=== PATIENT | male | born 1960 | race American Indian/Alaskan Native ===

== ENCOUNTER 2017-01-11 17:22 | Inpatient (IN) | payer SELFPAY ==
--- NOTE | 2017-01-11 18:33 | Emergency Department Report ---
ED Chest Pain HPI - General Chief Complaint: Chest Pain Stated Complaint: ELEVATED GLUCOSE/CHEST PAIN Time Seen by Provider: 01/11/17 18:30 Source: patient, EMS Mode of arrival: Stretcher Limitations: No Limitations - History of Present Illness Initial Comments: [place] when he had an apparent near syncopal episode. He states that he was standing at the time and caught himself on the way down. He also complains of some vague dizziness but no vertigo. In addition he states he's had intermittent right-sided chest pain which occurs for just a few minutes every few days. He is not having it now. However he states he experienced it just prior to the episode. He states he's never passed out before. He denies any recent travel. He denies leg pain or swelling. He states he has some vague shortness of breath although his pulse oximetry is 100%. He has not been coughing. Patient states that he is diabetic but doesn't take insulin or pills. Apparently he is noncompliant with his medicine. He does not have a primary care physician at this time. MD Complaint: chest pain -: Gradual, minutes(s) Onset: during exertion Pain Location: right chest Pain Radiation: none Severity: moderate Quality: sharp Consistency: now resolved Improves With: nothing Worsens With: nothing re: dyspnea. denies: nausea, vomting, diaphoresis Other Symptoms: syncope (near syncope). denies: cough, fever Treatments Prior to Arrival: none - Related Data Allergies Allergy/AdvReac Type Severity Reaction Status Date / Time No Known Allergies Allergy Unverified 01/11/17 18:12 Heart Score - HEART Score History: Slightly suspicious EKG: Normal Age: 45-65 Risk factors: 1-2 risk factors Troponin: < normal limit HEART Score: 2 - Critical Actions Critical Actions: 0-3 pts:0.9-1.7%risk of adverse cardiac event.Candidate for discharge ED Review of Systems ROS: Stated complaint: ELEVATED GLUCOSE/CHEST PAIN Other details as noted in HPI Constitutional: denies: chills, fever Eyes: denies: eye pain, eye discharge, vision change ENT: denies: ear pain, throat pain Respiratory: shortness of breath. denies: cough, wheezing Cardiovascular: chest pain, syncope. denies: palpitations Endocrine: no symptoms reported Gastrointestinal: denies: abdominal pain, nausea, diarrhea Genitourinary: denies: urgency, dysuria Musculoskeletal: denies: back pain, joint swelling, arthralgia Skin: denies: rash, lesions Neurological: denies: headache, weakness, paresthesias Psychiatric: denies: anxiety, depression Hematological/Lymphatic: denies: easy bleeding, easy bruising ED Past Medical Hx - Past Medical History Previous Medical History?: Yes Hx Diabetes: Yes - Surgical History Past Surgical History?: No - Social History Smoking Status: Former Smoker Substance Use Type: None ED Physical Exam - General Limitations: No Limitations General appearance: alert, in no apparent distress - Head Head exam: Present: atraumatic, normocephalic - Eye Eye exam: Present: normal appearance, PERRL, EOMI. Absent: scleral icterus - ENT ENT exam: Present: mucous membranes moist - Neck Neck exam: Present: normal inspection - Respiratory Respiratory exam: Present: normal lung sounds bilaterally. Absent: respiratory distress - Cardiovascular Cardiovascular Exam: Present: regular rate, normal rhythm. Absent: systolic murmur, diastolic murmur, rubs, gallop - GI/Abdominal GI/Abdominal exam: Present: soft, normal bowel sounds. Absent: distended, tenderness, guarding, rebound, rigid - Rectal Rectal exam: Present: deferred - Extremities Exam Extremities exam: Present: normal inspection, normal capillary refill. Absent: tenderness, pedal edema, joint swelling, calf tenderness - Back Exam Back exam: Present: normal inspection - Neurological Exam Neurological exam: Present: alert, oriented X3, CN II-XII intact. Absent: motor sensory deficit - Psychiatric Psychiatric exam: Present: normal affect, normal mood - Skin Skin exam: Present: warm, dry, intact, normal color. Absent: rash ED Course Vital Signs 01/11/17 01/11/17 17:54 18:07 Temperature 97.8 F Pulse Rate 66 66 Respiratory 18 Rate Blood Pressure 130/84 Blood Pressure 130/84 [Right] O2 Sat by Pulse 100 Oximetry - Reevaluation(s) Reevaluation #1: Referred to Dr. reynaldo brewster for admission to the hospitalist service. Certain tests are still pending. Dr. Munoz is aware. Patient is hemodynamically stable. He is not suspected of ACS or pulmonary embolism at this time clinically. However as above tests are still pending. 01/11/17 19:23 01/11/17 19:24 CT the head was ordered as the patient complained of some persistent dizziness after a near syncopal episode. CIARA score - Ciara Score Age > 65: (0) No Aspirin use within the Past 7 Days: (0) No 3 or more CAD Risk Factors: (0) No 2 or more Angina events in past 24 hrs: (0) No Known CAD with more than 50% Stenosis: (0) No Elevated Cardiac Markers: (0) No ST Deviation Greater than 0.5mm: (0) No CIARA Score: 0 ED Medical Decision Making - Lab Data Result diagrams: 01/11/17 18:31 01/11/17 18:31 Laboratory Results - last 24 hr 01/11/17 01/11/17 01/11/17 18:26 18:31 18:31 WBC 6.3 RBC 4.55 Hgb 14.3 Hct 42.5 MCV 93 MCH 31 MCHC 34 RDW 12.6 L Plt Count 265 Lymph % (Auto) 24.7 Forrest % (Auto) 5.4 Eos % (Auto) 0.3 Baso % (Auto) 0.4 Lymph # 1.6 Forrest # 0.3 Eos # 0.0 Baso # 0.0 Seg Neutrophils % 69.2 Seg Neutrophils # 4.4 Sodium 134 L Potassium 4.2 Chloride 95.1 L Carbon Dioxide 27 Anion Gap 16 BUN 9 Creatinine 0.7 L Estimated GFR > 60 BUN/Creatinine Ratio 12.85 Glucose 287 H POC Glucose 264 H Calcium 8.5 Troponin T < 0.010 - EKG Data -: EKG Interpreted by Me EKG shows normal: sinus rhythm, axis, intervals, QRS complexes, ST-T waves Rate: normal - EKG Data Interpretation: no acute changes - Radiology Data interpreted by me: Chest x-ray no acute process Critical care attestation.: If time is entered above; I have spent that time in minutes in the direct care of this critically ill patient, excluding procedure time. ED Disposition Clinical Impression: Near syncope, Right-sided chest pain Hyperglycemia due to type 2 diabetes mellitus Qualifiers: Diabetes mellitus alf insulin use: unspecified alf insulin use status Qualified Code(s): E11.65 - Type 2 diabetes mellitus with hyperglycemia Disposition: OP ADMIT IP TO THIS HOSP Is pt being admited?: Yes Does the pt Need Aspirin: Yes Condition: Stable Instructions: Diabetes Mellitus Type 2 in Adults (ED), Chest Pain (ED) Time of Disposition: 19:26
[2017-01-11 18:39] LABS: Basophils % (Auto) 0.4 % (0.0-1.8); Eosinophils % (Auto) 0.3 % (0.0-4.3); Hematocrit 42.5 % (35.5-45.6); Hemoglobin 14.3 gm/dl (11.8-15.2); Mean Corpuscular HGB Conc 34 % (32-34); Mean Corpuscular Hemoglobin 31 pg (28-32); Mean Corpuscular Volume 93 fl (84-94); Platelet Count 265 K/mm3 (140-440); Red Blood Count 4.55 M/mm3 (3.65-5.03); Red Cell Distribution Width 12.6 % (13.2-15.2); White Blood Count 6.3 K/mm3 (4.5-11.0)
--- NOTE | 2017-01-11 19:02 | History and Physical Report ---
History of Present Illness Chief complaint: My chest hurts History of present illness: 56 YO Male with DM, Metabolic Syndrome presents to ED for evaluation of chest pain. Pt states that he was standing at work, and got lightheaded and passed out , but caught himself on the way down. Pt c/o right-sided chest pain which occurs for just a few minutes every few days. Pain is 6/10, substernal, nonradiating, not worsened with exertion, or relieved with rest. Pt denies fever , chills, Palpitations, NVD, Headache, Vertigo, BRBPR, productive cough, prolonged travel/immobility, individual/family history of DVT/PE, Hemoptysis,, unintentional weight loss, night sweats. Past History Past Medical History: diabetes, other (Metabolic Syndrome) Past Surgical History: No surgical history, Other (reviewed) Social history: single. denies: smoking, alcohol abuse, prescription drug abuse Family history: hypertension Medications and Allergies Allergies Allergy/AdvReac Type Severity Reaction Status Date / Time No Known Allergies Allergy Verified 01/11/17 21:07 Review of Systems All systems: negative Exam - Constitutional Vitals: Temp Pulse Resp BP Pulse Ox 97.8 F 66 18 130/84 100 01/11/17 17:54 01/11/17 18:07 01/11/17 17:54 01/11/17 17:54 01/11/17 17:54 General appearance: Present: no acute distress, well-nourished - EENT Eyes: Present: PERRL ENT: hearing intact, clear oral mucosa - Neck Neck: Present: supple, normal ROM - Respiratory Respiratory effort: normal Respiratory: bilateral: CTA - Cardiovascular Heart Sounds: Present: S1 & S2. Absent: rub, click - Extremities Extremities: pulses symmetrical, No edema Peripheral Pulses: within normal limits - Abdominal General gastrointestinal: Present: soft, non-tender, non-distended, normal bowel sounds Male genitourinary: Present: normal - Integumentary Integumentary: Present: clear, warm, dry - Musculoskeletal Musculoskeletal: gait normal, strength equal bilaterally - Psychiatric Psychiatric: appropriate mood/affect, intact judgment & insight - Neurologic Neurologic: CNII-XII intact, moves all extremities Results - Labs CBC & Chem 7: 01/11/17 18:31 01/11/17 18:31 Labs: Abnormal lab results 01/11/17 01/11/17 Range/Units 18:26 18:31 RDW 12.6 L (13.2-15.2) % POC Glucose 264 H (70-105) Assessment and Plan - Patient Problems (1) ACS (acute coronary syndrome) Current Visit: Yes Status: Acute Plan to address problem: Admit to telemetry, serial cardiac enzymes, ekg, d dimer, supportive care, (2) Unconscious state Current Visit: Yes Status: Acute Plan to address problem: CT head, telemetry monitoring, serial cardiac enzymes, ekg (3) Diabetes Current Visit: Yes Status: Acute Qualifiers: Diabetes mellitus type: D Diabetes mellitus complication status: D Diabetes mellitus complication detail: D Diabetic retinopathy severity: D Proliferative retinopathy type: P Diabetes mellitus macular edema: D Diabetes mellitus assisted insulin use: D Laterality: L Chronic kidney disease stage: C Plan to address problem: ADA diet, insulin, accu check (4) Metabolic syndrome Current Visit: Yes Status: Acute Plan to address problem: Pt counseled regarding balanced diet, increased physical activity (5) DVT prophylaxis Current Visit: Yes Status: Acute
[2017-01-11 19:09] LABS: Anion Gap 16 mmol/L; BUN/Creatinine Ratio 12.85; Blood Urea Nitrogen 9 mg/dL (9-20); Calcium 8.5 mg/dL (8.4-10.2); Carbon Dioxide 27 mmol/L (22-30); Chloride 95.1 mmol/L (98-107); Glucose 287 mg/dL (75-100); Potassium 4.2 mmol/L (3.6-5.0); Sodium 134 mmol/L (137-145)
[2017-01-11] MEDS ORDERED: BABY ASPIRIN PO ONE (19:27)
--- NOTE | 2017-01-11 19:27 | Admit Criteria Form ---
Admission Criteria Documentation: CHEST PAIN Clinical Indications for Admission to Inpatient Care (Place 'X' for any and all applicable criteria): Admission is indicated for chest pain and ANY ONE of the following(1)(2)(3)(4)(5 ): [ ]I. Angina with acute coronary syndrome (Also use Myocardial Infarction or Angina guideline) [ ]II. Hemodynamic instability [X ]III. Angina needing acute intervention as indicated by ALL of the following (11)(12): [X ]a) Unstable angina is present as indicated by angina that is ANY ONE of the following: [X ]i) New onset [ ]ii) Nocturnal [ ]iii) Prolonged at rest [ ]iv) Progressive [X ]b) Angina warrants acute intervention as indicated by ANY ONE of the following: [ ]i) Recurrent angina (e.g, not responding as previously to treatment) [ ]ii) Angina at rest or with low-level activities despite initial medical therapy [ ]iii) New or presumably new ST-segment depression on ECG [ ]iv) Signs or symptoms of heart failure (eg, dyspnea, pulmonary edema) [ ]v) New or worsening mitral regurgitation [ ]vi) Hemodynamic instability [ ]vii) Dangerous arrhythmia (eg, sustained ventricular tachycardia) [ ]viii) History of percutaneous coronary intervention within 6 months [ ]ix) History of coronary artery bypass graft surgery [ ]x) CIARA risk score of 2 or greater[A] [X ]xi) History of Diabetes(14) [ ]xii) High-risk cardiac ischemia findings on noninvasive testing (e.g, echocardiogram, treadmill testing, nuclear scan) [ ]xiii) Chronic renal insufficiency (ie, estimated GFR less than 60 mL/min/1.732m) [ ]xiv) Left ventricular ejection fraction less than 40% [ ]IV. Evidence of IN (eg, cardiac biomarkers positive, ST-segment elevation on ECG) also use Myocardial Infarction Criteria Form. [ ]V. Pulmonary edema [ ]. Respiratory distress [ ]VII. Chest pain indicative of serious diagnosis other than coronary artery disease (eg, aortic dissection) [ ]VIII. Contraindications and/or Inappropriate clinical situations for Observational Care in patients with Chest Pain, when ANY ONE of the following is required: [ ]a) Patient with risk factor for pulmonary embolism, acute coronary syndrome and myocardial infarction (18) [ ]b) Patient with Pulmonary embolism require an average LOS of 4.3 days, therefore emergency department observation management is inappropriate 18,23 [ ]c) Painful condition/s in the elderly, have the highest rate of recidivism after emergency department observation management (10.8%) 20,21,22 [ ]d) Elevated cardiac biomarker requires intensive and exhaustive care (19) [ X]IX. General contraindications and/or Inappropriate clinical situations for Observational Care in patients with Chest Pain, when ANY ONE of the following is required: [ X]a) Prediction of prolongation of LOS based on ANY ONE of the following may be considered as a contraindication for observational care 2, 3, 4, 5, 6, 7, 8, 9, 10, 11 [ ]i) Age > 65 yrs. [X ]ii) Patient arriving by ambulance [ ]iii) Patient with high acuity [ ]iv) Patient requiring vital sign monitoring [ ]v) Patient on IV medication [ ]b) Systolic blood pressures 180mmHg 3,12 [ ]c) Patient with altered mental status including delirium and other alteration of consciousness, (3) [ ]d) Patient whose discharge disposition will be to a penitentiary home or rehabilitation home should not be managed in Emergency Department Observation Unit. CMS rule requires 3 days hospital stay before such placement. 3,13 [ ]e) Patient with failure to thrive due to broad array of etiologies 3,16,17 [ ]f) Inability to ambulate 3,14 Extended stay beyond goal length of stay may be needed for (1)(28): [ ]a) Specific condition diagnosed after evaluation (eg, pulmonary embolism, aortic dissection) [ ]b) Unstable angina [ ]c) Continued suspicion of acute coronary syndrome with inability to complete needed cardiac evaluation (eg, patient clinically unable to undergo stress testing) [ ]d) Myocardial infarction (Contents from ANGINA and CHEST PAIN clinical indications for admission to inpatient care have been integrated in this form) The original [employer] content created by [employer] has been revised. The portions of the content which have been revised are identified through the use of italic text or in bold, and [facility] has neither reviewed nor approved the modified material. All other unmodified content is copyright [facility]. Please see references footnoted in the original [facility] edition 2016 Admission Criteria Met: Yes
--- NOTE | 2017-01-11 19:57 | Cat Scan Report ---
FINAL REPORT PROCEDURE: CT head without contrast. TECHNIQUE: Computerized tomography of the head was performed without contrast material. HISTORY: Dizziness, syncope. COMPARISON: No prior studies are available for comparison. FINDINGS: The ventricles are normal in size. There may be a tiny old lacunar infarct in the right basal ganglia. The padilla matter and white matter otherwise appear normal. There are no mass lesions. There is no intracranial hemorrhage. There are no signs of acute infarction. The calvarium appears intact. The mastoid air cells and visualized paranasal sinuses are well aerated. IMPRESSION: No evidence of acute disease.
[2017-01-11 20:01] LABS: INR 1.03 (0.87-1.13)
[2017-01-11 20:02] LABS: Partial Thromboplastin Time 26.6 Sec. (24.2-36.6)
[2017-01-11] MEDS ORDERED: MILK OF MAGNESIA PO PRN (21:01)
[2017-01-11] MEDS ORDERED: SODIUM CHLORIDE FLUSH SYRINGE 10 ML IV PRN (21:01)
[2017-01-11] MEDS ORDERED: TYLENOL PO PRN (21:01)
[2017-01-11] MEDS ORDERED: ZOFRAN IV PRN (21:01)
[2017-01-11] MEDS ORDERED: DULCOLAX PR PRN (21:01)
[2017-01-11] MEDS ORDERED: D50W (25GM) IV PRN (21:05)
[2017-01-11] MEDS ORDERED: BABY ASPIRIN ONE (21:29)
[2017-01-11 21:42] LABS: Anion Gap 19 mmol/L; BUN/Creatinine Ratio 12.85; Blood Urea Nitrogen 9 mg/dL (9-20); Calcium 8.8 mg/dL (8.4-10.2); Carbon Dioxide 25 mmol/L (22-30); Chloride 93.3 mmol/L (98-107); Glucose 310 mg/dL (75-100); Potassium 3.7 mmol/L (3.6-5.0); Sodium 134 mmol/L (137-145)
[2017-01-11] MEDS: NOVOLOG SUB-Q SCH (22:03)
[2017-01-11] MEDS ORDERED: NOVOLOG SUB-Q ONE (22:08)
--- NOTE | 2017-01-12 07:55 | XRay Report ---
AP CHEST: HISTORY: Hypertension Trace right pleural effusion or pleural thickening is identified. The lungs are clear otherwise. Normal heart and mediastinal structures. The bony structures are unremarkable. IMPRESSION: Trace right pleural effusion.
[2017-01-12] MEDS: NOVOLOG SUB-Q SCH ×4 (11:00→21:43)
--- NOTE | 2017-01-12 11:57 | Discharge Summary ---
Providers - Providers Date of Admission: 01/11/17 21:01 Date of discharge: 01/12/17 Attending physician: MITCHELL MONTIEL MD Primary care physician: PUMPER GAGER APPRENTICE Hospitalization Reason for admission: near-syncope Condition: Stable Hospital course: 56 YO Male with DM, Metabolic Syndrome presents to ED for evaluation of chest pain. Pt states that he was standing at work, and got lightheaded and passed out , but caught himself on the way down. Pt c/o right-sided chest pain which occurs for just a few minutes every few days. Pain is 6/10, substernal, nonradiating, not worsened with exertion, or relieved with rest. Pt denies fever , chills, Palpitations, NVD, Headache, Vertigo, BRBPR, productive cough, prolonged travel/immobility, individual/family history of DVT/PE, Hemoptysis,, unintentional weight loss, night sweats. Patient had a stress test that was negative. Echo showed the 70% EF. Patient is clinically improved, he reports that he has not been taking his medicines for a year due to insurance lapsed all this were renewed for the patient. 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 He is clinically stable at this point for discharge (1) Atypical chest pain- costochondritis (2) Near Syncope with possible underlying vertigo (3) Diabetes mellitus (4) Metabolic syndrome Disposition: - TO HOME OR SELFCARE Time spent for discharge: 35 mins Core Measure Documentation - Palliative Care Palliative Care/ Comfort Measures: Not Applicable - Core Measures Any of the following diagnoses?: none - VTE Discharge Requirements Deep Vein Thrombosis/Pulmonary Embolism Present on Admission: No Exam - Physical Exam Narrative exam: VITAL SIGNS: Reviewed. GENERAL: The patient appeared well nourished and normally developed. Vital signs as documented. HEAD: No signs of head trauma. EYES: Pupils are equal. Extraocular motions intact. No nystagmus EARS: Hearing grossly intact. MOUTH: Oropharynx is normal. NECK: No adenopathy, no JVD. CHEST: Chest with clear breath sounds bilaterally. No wheezes, rales, or rhonchi. CARDIAC: Regular rate and rhythm. S1 and S2, without murmurs, gallops, or rubs. VASCULAR: No Edema. Peripheral pulses normal and equal in all extremities. ABDOMEN: Soft, without detectable tenderness. No sign of distention. No rebound or guarding, and no masses palpated. Bowel Sounds normal. MUSCULOSKELETAL: Good range of motion of all major joints. Extremities without clubbing, cyanosis or edema. NEUROLOGIC EXAM: Alert and oriented x 3. No focal sensory or strength deficits. Speech normal. Follows commands. PSYCHIATRIC: Mood normal. SKIN: No rash or lesions. - Constitutional Vitals: Temp Pulse Resp BP Pulse Ox 97.9 F 73 18 128/84 99 01/12/17 08:25 01/12/17 08:25 01/12/17 08:25 01/12/17 08:25 01/12/17 08:25 Plan Activity: advance as tolerated, fall precautions Diet: diabetic Additional Instructions: must follow up with the doctors. Recommend following with opthalmologist and poiatrist in 3-5 weeks Follow up with: PRIMARY CAREMD [Primary Care Provider] - 7 Days MIYA WASHINGTON MD [Staff Physician] - 7 Days LISA ELLER MD [Staff Physician] - 7 Days Prescriptions: Insulin NPH/Regular [NovoLIN 70/30] 12 unit SQ BIDDIAB 30 Days Lisinopril [Zestril TAB] 5 mg PO QDAY #30 tablet Other Discharge Orders: Glucometer (Amb) Location: Determined By Patient Glucometer supplies[Amb] Location: Determined By Patient
[2017-01-12] MEDS ORDERED: ANTIVERT PO PRN (16:06)
--- NOTE | 2017-01-12 16:13 | Progress Note ---
Assessment and Plan Assessment and plan: 56 YO Male with DM, Metabolic Syndrome presents to ED for evaluation of chest pain. Pt states that he was standing at work, and got lightheaded and passed out , but caught himself on the way down. Pt c/o right-sided chest pain which occurs for just a few minutes every few days. Pain is 6/10, substernal, nonradiating, not worsened with exertion, or relieved with rest. Pt denies fever , chills, Palpitations, NVD, Headache, Vertigo, BRBPR, productive cough, prolonged travel/immobility, individual/family history of DVT/PE, Hemoptysis,, unintentional weight loss, night sweats. (1) Atypical chest pain * Continue telemetry, stress test PENDING, serial cardiac enzymes, ekg, d dimer , supportive care, (2) Near Syncope with possible underlying vertigo * CT head negative, * Check echo * Meclizine-PRN (3) Diabetes * ADA diet, insulin, accu check * Non compliant secondary to insurance- counselling provided. psychiatric social worker consult (4) Metabolic syndrome Pt counseled regarding balanced diet, increased physical activity (5) DVT prophylaxis scd Plan of care discussed in detail with the patient, History Interval history: Patient seen and examined this morning in no acute distress still reports some dizziness but reports improvement. States that he has been having chest discomfort substernal bilateral chest area for the past year pain is reproducible with no exertional component. No other adverse event reported to me. Denies any shortness of breath. Unfortunately has not been taking his medication for a year due to insurance lapse. Hospitalist Physical - Physical exam Narrative exam: VITAL SIGNS: Reviewed. GENERAL: The patient appeared well nourished and normally developed. Vital signs as documented. HEAD: No signs of head trauma. EYES: Pupils are equal. Extraocular motions intact. No nystagmus EARS: Hearing grossly intact. MOUTH: Oropharynx is normal. NECK: No adenopathy, no JVD. CHEST: Chest with clear breath sounds bilaterally. No wheezes, rales, or rhonchi. CARDIAC: Regular rate and rhythm. S1 and S2, without murmurs, gallops, or rubs. VASCULAR: No Edema. Peripheral pulses normal and equal in all extremities. ABDOMEN: Soft, without detectable tenderness. No sign of distention. No rebound or guarding, and no masses palpated. Bowel Sounds normal. MUSCULOSKELETAL: Good range of motion of all major joints. Extremities without clubbing, cyanosis or edema. NEUROLOGIC EXAM: Alert and oriented x 3. No focal sensory or strength deficits. Speech normal. Follows commands. PSYCHIATRIC: Mood normal. SKIN: No rash or lesions. - Constitutional Vitals: Temp Pulse Resp BP Pulse Ox 97.9 F 73 18 128/84 99 01/12/17 08:25 01/12/17 08:25 01/12/17 08:25 01/12/17 08:25 01/12/17 08:25 General appearance: Present: no acute distress, well-nourished Results - Labs CBC & Chem 7: 01/11/17 18:31 01/11/17 21:09 Labs: Laboratory Last Values WBC 6.3 K/mm3 (4.5-11.0) 01/11/17 18:31 RBC 4.55 M/mm3 (3.65-5.03) 01/11/17 18:31 Hgb 14.3 gm/dl (11.8-15.2) 01/11/17 18:31 Hct 42.5 % (35.5-45.6) 01/11/17 18:31 MCV 93 fl (84-94) 01/11/17 18:31 MCH 31 pg (28-32) 01/11/17 18:31 MCHC 34 % (32-34) 01/11/17 18:31 RDW 12.6 % (13.2-15.2) L 01/11/17 18:31 Plt Count 265 K/mm3 (140-440) 01/11/17 18:31 Lymph % (Auto) 24.7 % (13.4-35.0) 01/11/17 18:31 Patrick % (Auto) 5.4 % (0.0-7.3) 01/11/17 18:31 Eos % (Auto) 0.3 % (0.0-4.3) 01/11/17 18:31 Baso % (Auto) 0.4 % (0.0-1.8) 01/11/17 18:31 Lymph # 1.6 K/mm3 (1.2-5.4) 01/11/17 18:31 Patrick # 0.3 K/mm3 (0.0-0.8) 01/11/17 18:31 Eos # 0.0 K/mm3 (0.0-0.4) 01/11/17 18:31 Baso # 0.0 K/mm3 (0.0-0.1) 01/11/17 18:31 Seg Neutrophils % 69.2 % (40.0-70.0) 01/11/17 18:31 Seg Neutrophils # 4.4 K/mm3 (1.8-7.7) 01/11/17 18:31 PT 14.0 Sec. (12.2-14.9) 01/11/17 19:22 INR 1.03 (0.87-1.13) 01/11/17 19:22 APTT 26.6 Sec. (24.2-36.6) 01/11/17 19:22 D-Dimer 152.15 ng/mlDDU (0-234) 01/11/17 19:22 Sodium 134 mmol/L (137-145) L 01/11/17 21:09 Potassium 3.7 mmol/L (3.6-5.0) 01/11/17 21:09 Chloride 93.3 mmol/L (98-107) L 01/11/17 21:09 Carbon Dioxide 25 mmol/L (22-30) 01/11/17 21:09 Anion Gap 19 mmol/L 01/11/17 21:09 BUN 9 mg/dL (9-20) 01/11/17 21:09 Creatinine 0.7 mg/dL (0.8-1.5) L 01/11/17 21:09 Estimated GFR > 60 ml/min 01/11/17 21:09 BUN/Creatinine Ratio 12.85 % 01/11/17 21:09 Glucose 310 mg/dL (75-100) H 01/11/17 21:09 POC Glucose 203 (70-105) H 01/12/17 12:21 Calcium 8.8 mg/dL (8.4-10.2) 01/11/17 21:09 Troponin T < 0.010 ng/mL (0.00-0.029) 01/12/17 02:43 NT-Pro-B Natriuret Pep < 5 pg/mL (0-900) 01/11/17 21:09 - Imaging and Cardiology Chest x-ray: image reviewed (right pleural effusion and minimal)
[2017-01-13] MEDS: NOVOLOG SUB-Q SCH ×3 (08:00→19:25)
[2017-01-13] MEDS ORDERED: LEXISCAN IV ONE (09:59)
[2017-01-13 11:27] VITALS: BP 142/89
--- NOTE | 2017-01-13 11:44 | Event Note ---
Date: 01/13/17 Stress MPI (lexiscan): 1. Normal study without evidence of significant ischemia or prior infarct 2. Normal lv fxn (70%) w/o evidence of TID
== END 2017-01-13 18:00 | disposition home or self-care (01) | DRG 206 ==
LOC: ED 17:22 → 4A 21:01
PROVIDERS: ADMIT Internal Medicine; ATTEND Internal Medicine
PROC: 4A02XM4 Measurement of Cardiac Total Activity, External Approach (ICD-10-PCS; principal; 2017-01-12)
DX: M94.0 Chondrocostal junction syndrome [Tietze] (principal); I24.9 Acute ischemic heart disease, unspecified; R07.89 Other chest pain; E11.9 Type 2 diabetes mellitus without complications; R42 Dizziness and giddiness; E88.81 Metabolic syndrome and other insulin resistance; Z91.14 Patient's other noncompliance with medication regimen; Z87.891 Personal history of nicotine dependence; Z82.49 Family history of ischemic heart disease and other diseases of the circulatory system
CPT/HCPCS: 36415; 70450; 71010; 78452; 80048; 82962; 83880; 84484; 85025; 85379; 85610; 85730; 93005; 93010; 93017; 93306; 99285; A9270-GY; A9502; J1815; J2785

== ENCOUNTER 2020-03-28 12:18 | Emergency (ER) | payer SELFPAY ==
[2020-03-28] MEDS ORDERED: ASPIRIN 325 MG TAB PO ONE ×2 (12:45→13:58)
[2020-03-28 13:19] LABS: Hematocrit 43.5 % (35.5-45.6); Hemoglobin 15.5 gm/dl (11.8-15.2); Mean Corpuscular HGB Conc 36 % (32-34); Mean Corpuscular Volume 94 fl (84-94); Platelet Count 269 K/mm3 (140-440); Red Blood Count 4.61 M/mm3 (3.65-5.03); Red Cell Distribution Width 12.9 % (13.2-15.2)
[2020-03-28 13:40] LABS: BUN/Creatinine Ratio 13; Blood Urea Nitrogen 10 mg/dL (9-20); Calcium 9.5 mg/dL (8.4-10.2); Hemolysis Index 12
--- NOTE | 2020-03-28 13:56 | Emergency Department Report ---
ED Chest Pain HPI - General Chief Complaint: Chest Pain Stated Complaint: CP Source: patient Mode of arrival: Ambulatory Limitations: No Limitations - History of Present Illness Initial Comments: This is a 59-year-old diabetic man who is noncompliant with his medication. He states he went to [facility] and let his insurance lapse. He has not had active chest pain for over a week. He does have intermittent tightness. Sometimes he feels like his chest is stiff in the morning. He does not describe pleuritic pain nor exertional chest pain. His chest pain is not associated with nausea vomiting breathing difficulty or sweating. He is not dyspneic. The reason why he came to the emergency department today is because he saw a family physician yesterday to renew his diabetic medication. He did not get that filled yet. [facility] requesting EKG was not completely normal. He decided to come to the emergency department this morning although he did not have any chest pain overnight. Patient was seen at this facility back in 2017. He did have a myocardial perfusion scan at that time. He was not diagnosed with coronary artery disease or cardiac related chest pain. 2017: Hospitalization Reason for admission: near-syncope Condition: Stable Hospital course: 56 YO Male with DM, Metabolic Syndrome presents to ED for evaluation of chest pain. Pt states that he was standing at work, and got lightheaded and passed out, but caught himself on the way down. Pt c/o right-sided chest pain which occurs for just a few minutes every few days. Pain is 6/10, substernal, nonradiating, not worsened with exertion, or relieved with rest. Pt denies fever, chills, Palpitations, NVD, Headache, Vertigo, BRBPR, productive cough, prolonged travel/immobility, individual/family history of DVT/PE, Hemoptysis,, unintentional weight loss, night sweats. Patient had a stress test that was negative. Echo showed the 70% EF. Patient is clinically improved, he reports that he has not been taking his medicines for a year due to insurance lapsed all this were renewed for the patient. I did strongly advise follow-up with primary care physician and also follow up with science writer and senior mechanical estimator due to the diabetes. He is clinically stable at this point for discharge (1) Atypical chest pain- costochondritis (2) Near Syncope with possible underlying vertigo (3) Diabetes mellitus (4) Metabolic syndrome MD Complaint: chest pain -: month(s), year(s) Onset: during rest Pain Location: substernal Pain Radiation: none Severity: mild Quality: tightness Consistency: intermittent, now resolved Improves With: nothing Worsens With: nothing Context: other (Above negative) re: denies: nausea, vomting, diaphoresis, dyspnea, sense of impending doom Other Symptoms: denies: cough, fever, syncope Treatments Prior to Arrival: none - Related Data Previous Rx's Medication Instructions Recorded Last Taken Type Insulin NPH/Regular [NovoLIN 70/30] 12 unit SQ BIDDIAB 30 Days ml 01/12/17 Unknown Rx lisinopriL [Zestril TAB] 5 mg PO QDAY #30 tablet 01/12/17 Unknown Rx Allergies Allergy/AdvReac Type Severity Reaction Status Date / Time No Known Allergies Allergy Verified 01/11/17 21:07 Heart Score - HEART Score History: Slightly suspicious EKG: Non-specific Age: 45-65 Risk factors: 1-2 risk factors Troponin: < normal limit HEART Score: 3 - Critical Actions Critical Actions: 0-3 pts:0.9-1.7%risk of adverse cardiac event.Candidate for discharge ED Review of Systems ROS: Stated complaint: CP Other details as noted in HPI Constitutional: denies: chills, fever Eyes: denies: eye pain, eye discharge, vision change ENT: denies: ear pain, throat pain Respiratory: denies: cough, shortness of breath, wheezing Cardiovascular: as per HPI, chest pain. denies: palpitations Endocrine: increased hunger, increased thirst, increased urine Gastrointestinal: denies: abdominal pain, nausea, diarrhea Genitourinary: denies: urgency, dysuria Musculoskeletal: denies: back pain, joint swelling, arthralgia Skin: denies: rash, lesions Neurological: denies: headache, weakness, paresthesias Psychiatric: denies: anxiety, depression Hematological/Lymphatic: denies: easy bleeding, easy bruising ED Past Medical Hx - Past Medical History Previous Medical History?: Yes Hx Congestive Heart Failure: No Hx Diabetes: Yes Hx Asthma: No Hx COPD: No - Surgical History Past Surgical History?: No - Social History Smoking Status: Never Smoker Substance Use Type: None - Medications Home Medications: Home Medications Medication Instructions Recorded Confirmed Last Taken Type Insulin NPH/Regular [NovoLIN 70/30] 12 unit SQ BIDDIAB 30 Days ml 01/12/17 Unknown Rx lisinopriL [Zestril TAB] 5 mg PO QDAY #30 tablet 01/12/17 Unknown Rx ED Physical Exam - General Limitations: No Limitations General appearance: alert, in no apparent distress - Head Head exam: Present: atraumatic, normocephalic - Eye Eye exam: Present: normal appearance. Absent: scleral icterus - ENT ENT exam: Present: mucous membranes moist - Neck Neck exam: Present: normal inspection - Respiratory Respiratory exam: Present: normal lung sounds bilaterally. Absent: respiratory distress - Cardiovascular Cardiovascular Exam: Present: regular rate, normal rhythm. Absent: systolic murmur, diastolic murmur, rubs, gallop - GI/Abdominal GI/Abdominal exam: Present: soft, normal bowel sounds. Absent: distended, tenderness, guarding, rebound, rigid - Rectal Rectal exam: Present: deferred - Extremities Exam Extremities exam: Present: normal inspection - Back Exam Back exam: Present: normal inspection - Neurological Exam Neurological exam: Present: alert, oriented X3, CN II-XII intact. Absent: motor sensory deficit - Psychiatric Psychiatric exam: Present: normal affect, normal mood - Skin Skin exam: Present: warm, dry, intact, normal color. Absent: rash ED Course Vital Signs 03/28/20 03/28/20 12:39 14:40 Temperature 98.1 F Pulse Rate 93 H Respiratory 18 16 Rate Blood Pressure 147/91 O2 Sat by Pulse 99 100 Oximetry - Reevaluation(s) Reevaluation #1: Patient without any recurrent chest pain. Obviously does have risk factors for coronary artery disease. However I do not think he would benefit from admission to the hospital at this juncture. He has had no active or recent chest pain. His pain is atypical. He has had a previous negative stress test. He is appropriate for outpatient evaluation by a prospecting driller and stable for discharge. 03/28/20 14:32 Reevaluation #2: Patient remains asymptomatic. He states he has his prescription for his diabetic medicines. He is referred for outpatient follow-up and further evaluation. 03/28/20 15:27 ALFRED score - Alfred Score Age > 65: (0) No Aspirin use within the Past 7 Days: (0) No 3 or more CAD Risk Factors: (0) No 2 or more Angina events in past 24 hrs: (0) No Known CAD with more than 50% Stenosis: (0) No Elevated Cardiac Markers: (0) No ST Deviation Greater than 0.5mm: (0) No ALFRED Score: 0 ED Medical Decision Making - Lab Data Result diagrams: 03/28/20 12:56 03/28/20 12:56 Laboratory Results - last 24 hr 03/28/20 03/28/20 12:56 12:56 WBC 5.4 RBC 4.61 Hgb 15.5 H Hct 43.5 MCV 94 MCH 34 H MCHC 36 H RDW 12.9 L Plt Count 269 Sodium 134 L Potassium 4.4 Chloride 95.0 L Carbon Dioxide 23 Anion Gap 20 BUN 10 Creatinine 0.8 Estimated GFR > 60 BUN/Creatinine Ratio 13 Glucose 544 H* Calcium 9.5 Troponin T < 0.010 Laboratory Results - last 24 hr 03/28/20 03/28/20 03/28/20 12:56 12:56 14:32 WBC 5.4 RBC 4.61 Hgb 15.5 H Hct 43.5 MCV 94 MCH 34 H MCHC 36 H RDW 12.9 L Plt Count 269 Add Manual Diff Complete Total Counted 100 Seg Neuts % (Manual) 46.0 Band Neutrophils % 0 Lymphocytes % (Manual) 49.0 H Reactive Lymphs % (Man) 0 Monocytes % (Manual) 4.0 Eosinophils % (Manual) 0 Basophils % (Manual) 0 Metamyelocytes % 1.0 Myelocytes % 0 Promyelocytes % 0 Blast Cells % 0 Nucleated RBC % Not Reportable Seg Neutrophils # Man 2.5 Band Neutrophils # 0.0 Lymphocytes # (Manual) 2.6 Abs React Lymphs (Man) 0.0 Monocytes # (Manual) 0.2 Eosinophils # (Manual) 0.0 Basophils # (Manual) 0.0 Metamyelocytes # 0.1 Myelocytes # 0.0 Promyelocytes # 0.0 Blast Cells # 0.0 WBC Morphology Not Reportable Hypersegmented Neuts Not Reportable Hyposegmented Neuts Not Reportable Hypogranular Neuts Not Reportable Smudge Cells Not Reportable Toxic Granulation Not Reportable Toxic Vacuolation Not Reportable Dohle Bodies Not Reportable Pelger-Huet Anomaly Not Reportable Serenity Rods Not Reportable Platelet Estimate Consistent w auto Clumped Platelets Not Reportable Plt Clumps, EDTA Not Reportable Large Platelets Not Reportable Giant Platelets Not Reportable Platelet Satelliting Not Reportable Plt Morphology Comment Not Reportable RBC Morphology Normal Dimorphic RBCs Not Reportable Polychromasia Not Reportable Hypochromasia Not Reportable Poikilocytosis Not Reportable Anisocytosis Not Reportable Microcytosis Not Reportable Macrocytosis Not Reportable Spherocytes Not Reportable Pappenheimer Bodies Not Reportable Sickle Cells Not Reportable Target Cells Not Reportable Tear Drop Cells Not Reportable Ovalocytes Not Reportable Helmet Cells Not Reportable Brock-[place] Bodies Not Reportable [place] Rings Not Reportable [place] Cells Not Reportable Bite Cells Not Reportable Crenated Cell Not Reportable Elliptocytes Not Reportable Acanthocytes (Spur) Not Reportable Rouleaux Not Reportable Hemoglobin C Crystals Not Reportable Schistocytes Not Reportable Malaria parasites Not Reportable Cong Bodies Not Reportable Hem Pathologist Commnt No Sodium 134 L Potassium 4.4 Chloride 95.0 L Carbon Dioxide 23 Anion Gap 20 BUN 10 Creatinine 0.8 Estimated GFR > 60 BUN/Creatinine Ratio 13 Glucose 544 H* POC Glucose Calcium 9.5 Troponin T < 0.010 < 0.010 03/28/20 03/28/20 14:59 15:01 WBC RBC Hgb Hct MCV MCH MCHC RDW Plt Count Add Manual Diff Total Counted Seg Neuts % (Manual) Band Neutrophils % Lymphocytes % (Manual) Reactive Lymphs % (Man) Monocytes % (Manual) Eosinophils % (Manual) Basophils % (Manual) Metamyelocytes % Myelocytes % Promyelocytes % Blast Cells % Nucleated RBC % Seg Neutrophils # Man Band Neutrophils # Lymphocytes # (Manual) Abs React Lymphs (Man) Monocytes # (Manual) Eosinophils # (Manual) Basophils # (Manual) Metamyelocytes # Myelocytes # Promyelocytes # Blast Cells # WBC Morphology Hypersegmented Neuts Hyposegmented Neuts Hypogranular Neuts Smudge Cells Toxic Granulation Toxic Vacuolation Dohle Bodies Pelger-Huet Anomaly Serenity Rods Platelet Estimate Clumped Platelets Plt Clumps, EDTA Large Platelets Giant Platelets Platelet Satelliting Plt Morphology Comment RBC Morphology Dimorphic RBCs Polychromasia Hypochromasia Poikilocytosis Anisocytosis Microcytosis Macrocytosis Spherocytes Pappenheimer Bodies Sickle Cells Target Cells Tear Drop Cells Ovalocytes Helmet Cells Brock-[place] Bodies [place] Rings [place] Cells Bite Cells Crenated Cell Elliptocytes Acanthocytes (Spur) Rouleaux Hemoglobin C Crystals Schistocytes Malaria parasites Cong Bodies Hem Pathologist Commnt Sodium Potassium Chloride Carbon Dioxide Anion Gap BUN Creatinine Estimated GFR BUN/Creatinine Ratio Glucose POC Glucose 148 H 363 H Calcium Troponin T - EKG Data -: EKG Interpreted by Me EKG shows normal: sinus rhythm, axis, intervals, QRS complexes, ST-T waves Rate: normal - EKG Data Interpretation: no acute changes, LVH, other (Intraventricular conduction delay possibly related to LVH) Critical care attestation.: If time is entered above; I have spent that time in minutes in the direct care of this critically ill patient, excluding procedure time. ED Disposition Clinical Impression: Medical non-compliance, Atypical chest pain Hyperglycemia due to type 2 diabetes mellitus Qualifiers: Diabetes mellitus halfway insulin use: with liberal arts teacher use Qualified Code(s): E11.65 - Type 2 diabetes mellitus with hyperglycemia; Z79.4 - senior care (current) use of insulin Disposition: DC-01 TO HOME OR SELFCARE Is pt being admited?: No Does the pt Need Aspirin: No Condition: Stable Instructions: Diabetes Mellitus Type 2 in Adults (ED), Chest Pain (ED) Additional Instructions: Recommend daily aspirin. Follow-up with your primary care provider and see prospecting driller for further evaluation. Return to the emergency department any recurrent chest pain as needed. Referrals: ADRIANA FRANK MD [Staff Physician] - 24 Hours Time of Disposition: 15:29
[2020-03-28] MEDS ORDERED: SODIUM CHLORIDE 0.9% 1000 ML 1,000 ML IV ONE (13:58)
[2020-03-28] MEDS ORDERED: INSULIN REGULAR, HUMAN 100 UNIT/ML 3ML VIAL IV ONE (13:58)
--- NOTE | 2020-03-28 14:13 | XRay Report ---
CHEST 1 VIEW 03/28/2020 1:10 PM INDICATION / CLINICAL INFORMATION: Chest Pain. COMPARISON: None available. FINDINGS: SUPPORT DEVICES: None. HEART / MEDIASTINUM: No significant abnormality. LUNGS / PLEURA: No significant pulmonary or pleural abnormality. No pneumothorax. ADDITIONAL FINDINGS: No significant additional findings. IMPRESSION: 1. No acute findings. Signer Name: Bigg Ya MD Signed: 03/28/2020 2:08 PM Workstation Name: [id number]
[2020-03-28] MEDS ORDERED: INSULIN REGULAR, HUMAN 100 UNITS/1 ML ONE (14:30)
[2020-03-28 14:45] LABS: Basophils % (Manual) 0 % (0.0-1.8); Eosinophils % (Manual) 0 % (0.0-4.3); Platelet Estimate Consistent w Auto; RBC Morphology Normal; Total Cells Counted 100
[2020-03-28 16:05] VITALS: BP 133/90
== END 2020-03-28 16:00 | disposition home or self-care (01) ==
LOC: ED 12:18
DX: E11.65 Type 2 diabetes mellitus with hyperglycemia (principal); R07.89 Other chest pain; Z91.14 Patient's other noncompliance with medication regimen; Z79.899 Other long term (current) drug therapy
CPT/HCPCS: 36415; 71045; 80048; 82962; 84484; 85007; 85025; 93005; 96361; 96374; 99284; J7030; J1815

== ENCOUNTER 2020-04-12 17:10 | Observation (INO) | payer OTHER ==
[2020-04-12] MEDS ORDERED: ASPIRIN 325 MG TAB PO ONE (17:49)
--- NOTE | 2020-04-12 18:30 | XRay Report ---
Chest single view INDICATION: Dyspnea IMPRESSION: Persistent small right pleural effusion when compared to 03/28/2020. Otherwise, no change. Signer Name: Omid Fitzpatrick MD Signed: 04/12/2020 6:26 PM Workstation Name: [id number]
[2020-04-12 18:41] LABS: BUN/Creatinine Ratio 7; Blood Urea Nitrogen 8 mg/dL (9-20); Calcium 9.2 mg/dL (8.4-10.2); Hemolysis Index 33
[2020-04-12 18:49] LABS: Hematocrit 41.7 % (35.5-45.6); Hemoglobin 14.3 gm/dl (11.8-15.2); Mean Corpuscular HGB Conc 34 % (32-34); Mean Corpuscular Volume 94 fl (84-94); Platelet Count 274 K/mm3 (140-440); Red Blood Count 4.44 M/mm3 (3.65-5.03)
[2020-04-12 22:22] LABS: Basophils % (Manual) 0 % (0.0-1.8); Eosinophils % (Manual) 0 % (0.0-4.3); Total Cells Counted 100
[2020-04-12 22:23] LABS: Anisocytosis 1+; Platelet Estimate Consistent w Auto
--- NOTE | 2020-04-13 03:36 | Emergency Department Report ---
ED Chest Pain HPI - General Chief Complaint: Chest Pain Stated Complaint: CHEST PAIN Time Seen by Provider: 04/13/20 03:20 Source: patient, old records reviewed Mode of arrival: Ambulatory Limitations: No Limitations - History of Present Illness Initial Comments: 59-year-old male with a past medical history of diabetes and elevated cholesterol presents to the hospital complaining of intermittent chest tightness x6 months. Pain comes with rest and exertion. He denies associated shortness of breath, nausea, vomiting, or diaphoresis. Patient does states he is exhibiting fatigue with activity. Patient was seen here in the ER March 28 and subsequently discharged. Patient had a visit with a detective Dr. De La Torre with [facility] on April 12. As per her history patient had chest tightness on and off for a few weeks worse for the last 2 days. In the office patient had an EKG with probable recent anterior wall WI and inferior ST depressions. EKG and [facility] note included in his medical record on chart. Patient was sent to the ER for further evaluation. As per medical record greater than a stress test here in 2016 and was diagnosed with costochondritis Patient's home meds include aspirin 81 mg delayed release 1 tablet daily atrovastatin 10 mg p.o. daily Glipizide 10 mg daily Humulin N NPH - Related Data Previous Rx's Medication Instructions Recorded Last Taken Type Insulin NPH/Regular [NovoLIN 70/30] 12 unit SQ BIDDIAB 30 Days ml 01/12/17 Unknown Rx lisinopriL [Zestril TAB] 5 mg PO QDAY #30 tablet 01/12/17 Unknown Rx Allergies Allergy/AdvReac Type Severity Reaction Status Date / Time No Known Allergies Allergy Verified 01/11/17 21:07 Heart Score - HEART Score History: Slightly suspicious EKG: Non-specific Age: 45-65 Risk factors: > 3 risk factors or hx of atherosclerotic disease Troponin: < normal limit HEART Score: 4 ED Review of Systems ROS: Stated complaint: CHEST PAIN Other details as noted in HPI Comment: All other systems reviewed and negative ED Past Medical Hx - Past Medical History Previous Medical History?: Yes Hx Congestive Heart Failure: No Hx Diabetes: Yes Hx Asthma: No Hx COPD: No - Surgical History Past Surgical History?: No - Family History Family history: CAD/[place] - Social History Smoking Status: Former Smoker Substance Use Type: None - Medications Home Medications: Home Medications Medication Instructions Recorded Confirmed Last Taken Type Insulin NPH/Regular [NovoLIN 70/30] 12 unit SQ BIDDIAB 30 Days ml 01/12/17 Unknown Rx lisinopriL [Zestril TAB] 5 mg PO QDAY #30 tablet 01/12/17 Unknown Rx ED Physical Exam - General Limitations: No Limitations - Other Other exam information: General: No acute distress Head: Atraumatic Eyes: normal appearance ENT: Moist mucous membranes Neck: Normal appearance, no midline tenderness Chest: Clear to auscultation bilaterally, mild anterior chest wall tender CV: Regular rate and rhythm Abdomen: Soft, normal bowel sounds, nontender, nondistended, no rebound or guarding Back: Normal inspection Extremity: Normal inspection, full range of motion, no calf tenderness or leg edema Neuro: Alert O x 3, no facial asymmetry, speech clear, no gross motor sensory deficit Psych: Appropriate behavior Skin: No rash ED Course Vital Signs 04/12/20 04/13/20 17:51 03:39 Temperature 98.3 F Pulse Rate 84 61 Respiratory 20 16 Rate Blood Pressure 132/80 Blood Pressure 149/90 [Right] O2 Sat by Pulse 98 97 Oximetry - Consultations Consultation #1: 04/13/20 03:43 Case discussed with on-call detective for [place] heart doctor ANY DIETRICH. Patient will be admitted for further cardiac work ALFRED score - Alfred Score Age > 65: (0) No Aspirin use within the Past 7 Days: (1) Yes 3 or more CAD Risk Factors: (1) Yes 2 or more Angina events in past 24 hrs: (1) Yes Known CAD with more than 50% Stenosis: (0) No Elevated Cardiac Markers: (0) No ST Deviation Greater than 0.5mm: (1) Yes (On cardiology EKG) ALFRED Score: 4 ED Medical Decision Making - Lab Data Result diagrams: 04/12/20 18:11 04/12/20 18:11 Lab Results 04/12/20 04/12/20 04/12/20 Range/Units 18:11 18:11 20:54 WBC 5.3 (4.5-11.0) K/mm3 RBC 4.44 (3.65-5.03) M/mm3 Hgb 14.3 (11.8-15.2) gm/dl Hct 41.7 (35.5-45.6) % MCV 94 (84-94) fl MCH 32 (28-32) pg MCHC 34 (32-34) % RDW 13.0 L (13.2-15.2) % Plt Count 274 (140-440) K/mm3 Add Manual Diff Complete Total Counted 100 Seg Neuts % (Manual) 45.0 (40.0-70.0) % Band Neutrophils % 0 % Lymphocytes % (Manual) 47.0 H (13.4-35.0) % Reactive Lymphs % (Man) 0 % Monocytes % (Manual) 8.0 H (0.0-7.3) % Eosinophils % (Manual) 0 (0.0-4.3) % Basophils % (Manual) 0 (0.0-1.8) % Metamyelocytes % 0 % Myelocytes % 0 % Promyelocytes % 0 % Blast Cells % 0 % Nucleated RBC % Not Reportable Seg Neutrophils # Man 2.4 (1.8-7.7) K/mm3 Band Neutrophils # 0.0 K/mm3 Lymphocytes # (Manual) 2.5 (1.2-5.4) K/mm3 Abs React Lymphs (Man) 0.0 K/mm3 Monocytes # (Manual) 0.4 (0.0-0.8) K/mm3 Eosinophils # (Manual) 0.0 (0.0-0.4) K/mm3 Basophils # (Manual) 0.0 (0.0-0.1) K/mm3 Metamyelocytes # 0.0 K/mm3 Myelocytes # 0.0 K/mm3 Promyelocytes # 0.0 K/mm3 Blast Cells # 0.0 K/mm3 WBC Morphology Not Reportable Hypersegmented Neuts Not Reportable Hyposegmented Neuts Not Reportable Hypogranular Neuts Not Reportable Smudge Cells Not Reportable Toxic Granulation Not Reportable Toxic Vacuolation Not Reportable Dohle Bodies Not Reportable Pelger-Huet Anomaly Not Reportable Serenity Rods Not Reportable Platelet Estimate Consistent w auto Clumped Platelets Not Reportable Plt Clumps, EDTA Not Reportable Large Platelets Not Reportable Giant Platelets Not Reportable Platelet Satelliting Not Reportable Plt Morphology Comment Not Reportable RBC Morphology Not Reportable Dimorphic RBCs Not Reportable Polychromasia Not Reportable Hypochromasia Not Reportable Poikilocytosis Not Reportable Anisocytosis 1+ Microcytosis Not Reportable Macrocytosis Not Reportable Spherocytes Not Reportable Pappenheimer Bodies Not Reportable Sickle Cells Not Reportable Target Cells Not Reportable Tear Drop Cells Not Reportable Ovalocytes Not Reportable Helmet Cells Not Reportable Brock-[place] Bodies Not Reportable [place] Rings Not Reportable [place] Cells Not Reportable Bite Cells Not Reportable Crenated Cell Not Reportable Elliptocytes Not Reportable Acanthocytes (Spur) Not Reportable Rouleaux Not Reportable Hemoglobin C Crystals Not Reportable Schistocytes Not Reportable Malaria parasites Not Reportable Cong Bodies Not Reportable Hem Pathologist Commnt No Sodium 134 L (137-145) mmol/L Potassium 4.8 (3.6-5.0) mmol/L Chloride 92.7 L (98-107) mmol/L Carbon Dioxide 24 (22-30) mmol/L Anion Gap 22 mmol/L BUN 8 L (9-20) mg/dL Creatinine 1.1 (0.8-1.3) mg/dL Estimated GFR > 60 ml/min BUN/Creatinine Ratio 7 % Glucose 455 H (75-100) mg/dL Calcium 9.2 (8.4-10.2) mg/dL Troponin T < 0.010 < 0.010 (0.00-0.029) ng/mL 04/13/20 Range/Units 00:03 WBC (4.5-11.0) K/mm3 RBC (3.65-5.03) M/mm3 Hgb (11.8-15.2) gm/dl Hct (35.5-45.6) % MCV (84-94) fl MCH (28-32) pg MCHC (32-34) % RDW (13.2-15.2) % Plt Count (140-440) K/mm3 Add Manual Diff Total Counted Seg Neuts % (Manual) (40.0-70.0) % Band Neutrophils % % Lymphocytes % (Manual) (13.4-35.0) % Reactive Lymphs % (Man) % Monocytes % (Manual) (0.0-7.3) % Eosinophils % (Manual) (0.0-4.3) % Basophils % (Manual) (0.0-1.8) % Metamyelocytes % % Myelocytes % % Promyelocytes % % Blast Cells % % Nucleated RBC % Seg Neutrophils # Man (1.8-7.7) K/mm3 Band Neutrophils # K/mm3 Lymphocytes # (Manual) (1.2-5.4) K/mm3 Abs React Lymphs (Man) K/mm3 Monocytes # (Manual) (0.0-0.8) K/mm3 Eosinophils # (Manual) (0.0-0.4) K/mm3 Basophils # (Manual) (0.0-0.1) K/mm3 Metamyelocytes # K/mm3 Myelocytes # K/mm3 Promyelocytes # K/mm3 Blast Cells # K/mm3 WBC Morphology Hypersegmented Neuts Hyposegmented Neuts Hypogranular Neuts Smudge Cells Toxic Granulation Toxic Vacuolation Dohle Bodies Pelger-Huet Anomaly Serenity Rods Platelet Estimate Clumped Platelets Plt Clumps, EDTA Large Platelets Giant Platelets Platelet Satelliting Plt Morphology Comment RBC Morphology Dimorphic RBCs Polychromasia Hypochromasia Poikilocytosis Anisocytosis Microcytosis Macrocytosis Spherocytes Pappenheimer Bodies Sickle Cells Target Cells Tear Drop Cells Ovalocytes Helmet Cells Brock-[place] Bodies [place] Rings [place] Cells Bite Cells Crenated Cell Elliptocytes Acanthocytes (Spur) Rouleaux Hemoglobin C Crystals Schistocytes Malaria parasites Cong Bodies Hem Pathologist Commnt Sodium (137-145) mmol/L Potassium (3.6-5.0) mmol/L Chloride (98-107) mmol/L Carbon Dioxide (22-30) mmol/L Anion Gap mmol/L BUN (9-20) mg/dL Creatinine (0.8-1.3) mg/dL Estimated GFR ml/min BUN/Creatinine Ratio % Glucose (75-100) mg/dL Calcium (8.4-10.2) mg/dL Troponin T < 0.010 (0.00-0.029) ng/mL - EKG Data -: EKG Interpreted by Me (LVH) EKG shows normal: sinus rhythm, ST-T waves (No ST deviation WI. No ST depression) Rate: normal - EKG Data When compared to previous EKG there are: no significant change (Compared to Se ptember 2019) 04/13/20 03:46 Repeat EKG performed at 3:42 AM is normal sinus rhythm without ST elevation WI - Radiology Data Radiology results: report reviewed Chest single view INDICATION: Dyspnea IMPRESSION: Persistent small right pleural effusion when compared to 03/28/2020. Otherwise, no change. - Medical Decision Making Patient presents to the hospital anterior chest wall pain intermittent for the past 6 months. Patient was seen by cardiology and had an abnormal EKG concerning for anterior wall WI. Repeat EKG in the ED does not reflect these changes and are similar to his previous EKG in March. Patient has been in the ER for greater than 10 hours prior to my evaluation and had 3- troponins during that time. Repeat EKG in the ED without signs of acute WI x2. Cardiology is consulted and agrees with plan for admission. Patient will be admitted to hospital service for further evaluation and cardiology consultation. Critical Care Time: No Critical care attestation.: If time is entered above; I have spent that time in minutes in the direct care of this critically ill patient, excluding procedure time. ED Disposition Clinical Impression: Diabetes, Chest pain Disposition: OP ADMIT IP TO THIS HOSP Is pt being admited?: Yes Condition: Stable Time of Disposition: 03:45 (Dr Smiht/hosp)
--- NOTE | 2020-04-13 07:55 | History and Physical Report ---
History of Present Illness Date of examination: 04/13/20 Date of admission: 04/13/20 03:49 History of present illness: 59-year-old male patient with a past medical history of diabetes and elevated cholesterol presents to the hospital complaining of intermittent chest tightness x6 months. Pain comes with rest and exertion. He denies associated shortness of breath, nausea, vomiting, or diaphoresis. Patient does states he is exhibiting fatigue with activity. Patient was seen here in the ER March 28 and subsequently discharged. Patient had a visit with a prefitter doors Dr. De La Torre with [facility] on April 12. As per her history patient had chest tightness on and off for a few weeks worse for the last 2 days. In the office patient had an EKG with probable recent anterior wall [place] and inferior ST depressions. EKG and Marine heart note included in his medical record on . Patient was sent to the ER for further evaluation. As per medical record greater than a stress test here in 2016 and was diagnosed with costochondritis At the time of my evaluation patient has intermittent mild chest pain not associated with nausea vomiting or diaphoresis Patient denies any shortness of breath No orthopnea paroxysmal nocturnal dyspnea 3 sets of cardiac enzymes negative EKG nonspecific changes Past History Past Medical History: diabetes, hypertension, hyperlipidemia Past Surgical History: denies: No surgical history Social history: smoking (Quit smoking). denies: alcohol abuse, prescription drug abuse Family history: CAD, hypertension Medications and Allergies Allergies Allergy/AdvReac Type Severity Reaction Status Date / Time No Known Allergies Allergy Verified 01/11/17 21:07 Home Medications Medication Instructions Recorded Confirmed Last Taken Type Insulin NPH/Regular [NovoLIN 70/30] 12 unit SQ BIDDIAB 30 Days ml 01/12/17 Unknown Rx lisinopriL [Zestril TAB] 5 mg PO QDAY #30 tablet 01/12/17 Unknown Rx Review of Systems Constitutional: weakness, no weight loss, no weight gain Ears, nose, mouth and throat: no nasal congestion, no nasal discharge Cardiovascular: chest pain, no orthopnea, no palpitations, no shortness of breath Respiratory: no cough, no hemoptysis Gastrointestinal: no abdominal pain, no nausea, no vomiting Genitourinary Male: no dysuria, no hematuria Musculoskeletal: no myalgias, no arthritis Integumentary: no rash, no lesions Neurological: no weakness, no numbness, no seizures, no syncope Psychiatric: no anxiety, no depression Endocrine: no cold intolerance, no heat intolerance Hematologic/Lymphatic: no easy bruising, no easy bleeding Allergic/Immunologic: no urticaria, no allergic rhinitis Exam - Constitutional Vitals: Temp Pulse Resp BP Pulse Ox 98.3 F 62 10 L 116/71 95 04/12/20 17:51 04/13/20 07:00 04/13/20 07:00 04/13/20 07:00 04/13/20 07:00 General appearance: Present: no acute distress, well-nourished, obese - EENT Eyes: Present: PERRL, EOM intact - Neck Neck: Present: supple, normal ROM - Respiratory Respiratory effort: normal Respiratory: bilateral: diminished, negative: rales, rhonchi, wheezing - Cardiovascular Rhythm: regular Heart Sounds: Present: S1 & S2 - Extremities Extremities: no ischemia, No edema - Abdominal General gastrointestinal: Present: soft, non-tender, non-distended, normal bowel sounds - Integumentary Integumentary: Present: clear, warm - Musculoskeletal Musculoskeletal: strength equal bilaterally - Psychiatric Psychiatric: appropriate mood/affect, cooperative - Neurologic Neurologic: moves all extremities HEART Score - HEART Score EKG: Non-specific Age: 45-65 Risk factors: > 3 risk factors or hx of atherosclerotic disease Troponin: Troponin T < 0.010 ng/mL (0.00-0.029) 04/13/20 00:03 Troponin: < normal limit Results - Labs CBC & Chem 7: 04/12/20 18:11 04/12/20 18:11 Labs: Abnormal lab results 04/12/20 04/12/20 Range/Units 18:11 18:11 RDW 13.0 L (13.2-15.2) % Lymphocytes % (Manual) 47.0 H (13.4-35.0) % Monocytes % (Manual) 8.0 H (0.0-7.3) % Sodium 134 L (137-145) mmol/L Chloride 92.7 L (98-107) mmol/L BUN 8 L (9-20) mg/dL Glucose 455 H (75-100) mg/dL Assessment and Plan --Chest pain; Evaluate for acute coronary syndrome Serial cardiac enzymes, serial EKG Echocardiogram for LV function ejection fraction Aspirin, beta-blockers, JACK inhibitors, nitrates, statins Morphine, and Protonix Cardiology already consulted Patient has multiple risk factors, possible stress test versus cath as needed --Abnormal EKG; Evaluate for acute coronary syndrome Cardiology consulted --Type 2 diabetes mellitus; Accu-Chek, sliding scale coverage, ADA diet Long-acting insulin 70/30 Novolin, HbA1c Diabetic education and nutrition education if needed --Dyslipidemia; Statin, low-cholesterol diet --History of hypertension; moderate control Continue current antihypertensives and PRN medications --DVT prophylaxis; Lovenox --Full CODE STATUS We will closely monitor the patient and adjust management as needed Plan of care reviewed with the patient and his nurse
[2020-04-13] MEDS ORDERED: MORPHINE 2 MG/1 ML INJ IV PRN (07:56)
[2020-04-13 08:49] LABS: Chol/HDL Ratio 4.43 %
[2020-04-13] MEDS ORDERED: NITROGLYCERIN 0.4 MG TAB SUBL SL PRN (09:00)
[2020-04-13] MEDS ORDERED: carvediloL 3.125 MG TAB ONE (10:09)
[2020-04-13] MEDS ORDERED: PANTOPRAZOLE 20 MG TAB PO ONE (10:09)
[2020-04-13] MEDS ORDERED: ASPIRIN 325 MG TAB ONE (10:10)
[2020-04-13] MEDS ORDERED: LISINOPRIL 10 MG TAB ONE (10:15)
[2020-04-13] MEDS: ASPIRIN 325 MG TAB PO SCH (10:18)
[2020-04-13] MEDS: LISINOPRIL 10 MG TAB PO SCH (10:18)
[2020-04-13] MEDS: carvediloL 3.125 MG TAB PO SCH ×2 (10:20→21:35)
[2020-04-13] MEDS ORDERED: PANTOPRAZOLE 40 MG INJ IV ONE (10:23)
[2020-04-13] MEDS: PANTOPRAZOLE 40 MG INJ IV SCH (10:26)
[2020-04-13] MEDS ORDERED: INSULIN REGULAR, HUMAN 100 UNIT/ML 3ML VIAL ONE (10:40)
[2020-04-13] MEDS: INSULIN NPH/REGULAR 70/30 INJ SUB-Q SCH ×2 (10:58→17:54)
[2020-04-13] MEDS: INSULIN LISPRO 100 UNIT/ML VIAL 3 mL SUB-Q SCH ×3 (11:37→21:35)
--- NOTE | 2020-04-13 15:06 | Consultation ---
HISTORY OF PRESENT ILLNESS: The patient is a 59-year-old gentleman with a history of diabetes and hyperlipidemia, who was referred to the Emergency Room because of chest pain and an abnormal electrocardiogram by Dr. Ruano. He has had intermittent chest pain for a number of months, but it has been worse over the past few days. He describes substernal chest discomfort that occurs with and without activity. There seems to be a positional component to it. He describes easy fatigability. He had a negative stress test about 3 years ago. He describes it as a substernal tightness. He was in the Emergency Room about 2 weeks ago and discharged. He gives no history of congestive heart failure, peripheral vascular disease, strokes or arrhythmias. Cardiac enzymes have been negative. He did not describe any reflux or indigestion. FAMILY HISTORY: Coronary artery disease, hypertension. SOCIAL HISTORY: Smoking, prior smoker. Alcohol, no heavy use. OPERATIONS: None. MEDICATIONS: See the nurse's list. ALLERGIES: None. REVIEW OF SYSTEMS: No other complaints or medical problems described. PHYSICAL EXAMINATION: GENERAL: Well-developed, well-nourished, no acute distress. Alert, oriented, cooperative. Mental status normal. EYES, NOSE, AND THROAT: Unremarkable. NECK: Reveals no JVD or bruits. Neck is supple, no masses. LUNGS: Clear. No labored respirations. HEART: Regular rhythm, S4 gallop. No murmurs or rubs. ABDOMEN: Soft, nontender, no masses. EXTREMITIES: No cyanosis, clubbing, edema. Peripheral pulses are intact. NEUROLOGIC: Symmetrical. SKIN: Clear. LABORATORY DATA: EKG, nonspecific ST-T changes. Hyperlipidemia was noted on the laboratories. IMPRESSION: 1. Chest pain with negative cardiac enzymes, possible unstable angina. We will recommend stress thallium scanning as an initial approach. 2. Diabetes. 3. Uncontrolled hyperlipidemia. PLAN: Antianginal therapy. Stress thallium study. Discussed CAD risk factor modification. Review office records. Thank you for this consultation. JOB# [id number] ArgeliaDS/NTS
[2020-04-13] MEDS: ENOXAPARIN 40 MG/0.4 ML INJ SUB-Q SCH (21:35)
[2020-04-14] MEDS: INSULIN LISPRO 100 UNIT/ML VIAL 3 mL SUB-Q SCH ×5 (08:18→22:19)
[2020-04-14] MEDS: carvediloL 3.125 MG TAB PO SCH ×2 (10:17→22:18)
[2020-04-14] MEDS: ASPIRIN 325 MG TAB PO SCH (10:17)
[2020-04-14] MEDS: PANTOPRAZOLE 40 MG INJ IV SCH (10:17)
[2020-04-14] MEDS: LISINOPRIL 10 MG TAB PO SCH (10:17)
[2020-04-14] MEDS: INSULIN NPH/REGULAR 70/30 INJ SUB-Q SCH ×2 (10:18→16:36)
--- NOTE | 2020-04-14 11:57 | Progress Note ---
Assessment and Plan - Patient Problems (1) Chest pain Current Visit: Yes Status: Acute (2) Diabetes Current Visit: Yes Status: Acute Subjective Date of service: 04/14/20 Interval history: NO C/O Objective Vital Signs Temp Pulse Resp BP Pulse Ox 04/14/20 09:11 98.2 F 75 18 105/69 98 04/14/20 08:21 77 04/14/20 04:31 98.0 F 77 18 112/70 99 04/14/20 00:06 98.0 F 81 20 105/63 100 04/13/20 22:00 82 18 04/13/20 19:02 98.3 F 71 18 106/68 98 04/13/20 13:48 18 04/13/20 12:00 90 14 115/77 87 - Physical Examination General: No Apparent Distress HEENT: Positive: PERRL Neck: Positive: neck supple Cardiac: Positive: Regular Rate Lungs: Positive: clear to auscultation Extremities: Present: edema (NO)
--- NOTE | 2020-04-14 18:57 | Progress Note ---
Assessment and Plan Assessment and plan: --possible stress test tomorrow . Patient n.p.o. from midnight --Chest pain; Evaluate for acute coronary syndrome Serial cardiac enzymes, negative Echocardiogram; LV EF 60 to 65% Aspirin, beta-blockers, JACK inhibitors, nitrates, statins Morphine, and Protonix Cardiology evaluation noted and appreciated Stress test tomorrow --Abnormal EKG; Evaluate for acute coronary syndrome Stress test tomorrow --Type 2 diabetes mellitus; Accu-Chek, sliding scale coverage, ADA diet Long-acting insulin 70/30 Novolin, HbA1c Diabetic education and nutrition education if needed --Dyslipidemia; Statin, low-cholesterol diet --History of hypertension; moderate control Continue current antihypertensives and PRN medications --DVT prophylaxis; Lovenox --Full CODE STATUS We will closely monitor the patient and adjust management as needed Plan of care reviewed with the patient Follow stress test if negative and patient is stable may discharge home tomorrow History Interval history: I have seen and examined the patient at the bedside today Patient's chart and current medications reviewed Patient feels slightly better Still has some intermittent chest pain Vital signs reviewed Hospitalist Physical - Constitutional Vitals: Temp Pulse Resp BP Pulse Ox 98.2 F 75 18 105/69 98 04/14/20 09:11 04/14/20 09:11 04/14/20 09:11 04/14/20 09:11 04/14/20 09:11 General appearance: Present: no acute distress, well-nourished, obese - EENT Eyes: Present: PERRL, EOM intact - Neck Neck: Present: supple, normal ROM - Respiratory Respiratory effort: normal Respiratory: bilateral: diminished, negative: rales, rhonchi, wheezing - Cardiovascular Rhythm: regular Heart Sounds: Present: S1 & S2 - Extremities Extremities: no ischemia, No edema - Abdominal General gastrointestinal: soft, non-tender, non-distended, normal bowel sounds - Integumentary Integumentary: Present: clear, warm - Psychiatric Psychiatric: appropriate mood/affect, cooperative - Neurologic Neurologic: CNII-XII intact, moves all extremities HEART Score - HEART Score EKG: Non-specific Age: 45-65 Risk factors: > 3 risk factors or hx of atherosclerotic disease Troponin: Troponin T < 0.010 ng/mL (0.00-0.029) 04/13/20 00:03 Troponin: < normal limit Results - Labs CBC & Chem 7: 04/12/20 18:11 04/12/20 18:11 Labs: Laboratory Last Values WBC 5.3 K/mm3 (4.5-11.0) 04/12/20 18:11 RBC 4.44 M/mm3 (3.65-5.03) 04/12/20 18:11 Hgb 14.3 gm/dl (11.8-15.2) 04/12/20 18:11 Hct 41.7 % (35.5-45.6) 04/12/20 18:11 MCV 94 fl (84-94) 04/12/20 18:11 MCH 32 pg (28-32) 04/12/20 18:11 MCHC 34 % (32-34) 04/12/20 18:11 RDW 13.0 % (13.2-15.2) L 04/12/20 18:11 Plt Count 274 K/mm3 (140-440) 04/12/20 18:11 Add Manual Diff Complete 04/12/20 18:11 Total Counted 100 04/12/20 18:11 Seg Neuts % (Manual) 45.0 % (40.0-70.0) 04/12/20 18:11 Band Neutrophils % 0 % 04/12/20 18:11 Lymphocytes % (Manual) 47.0 % (13.4-35.0) H 04/12/20 18:11 Reactive Lymphs % (Man) 0 % 04/12/20 18:11 Monocytes % (Manual) 8.0 % (0.0-7.3) H 04/12/20 18:11 Eosinophils % (Manual) 0 % (0.0-4.3) 04/12/20 18:11 Basophils % (Manual) 0 % (0.0-1.8) 04/12/20 18:11 Metamyelocytes % 0 % 04/12/20 18:11 Myelocytes % 0 % 04/12/20 18:11 Promyelocytes % 0 % 04/12/20 18:11 Blast Cells % 0 % 04/12/20 18:11 Nucleated RBC % Not Reportable 04/12/20 18:11 Seg Neutrophils # Man 2.4 K/mm3 (1.8-7.7) 04/12/20 18:11 Band Neutrophils # 0.0 K/mm3 04/12/20 18:11 Lymphocytes # (Manual) 2.5 K/mm3 (1.2-5.4) 04/12/20 18:11 Abs React Lymphs (Man) 0.0 K/mm3 04/12/20 18:11 Monocytes # (Manual) 0.4 K/mm3 (0.0-0.8) 04/12/20 18:11 Eosinophils # (Manual) 0.0 K/mm3 (0.0-0.4) 04/12/20 18:11 Basophils # (Manual) 0.0 K/mm3 (0.0-0.1) 04/12/20 18:11 Metamyelocytes # 0.0 K/mm3 04/12/20 18:11 Myelocytes # 0.0 K/mm3 04/12/20 18:11 Promyelocytes # 0.0 K/mm3 04/12/20 18:11 Blast Cells # 0.0 K/mm3 04/12/20 18:11 WBC Morphology Not Reportable 04/12/20 18:11 Hypersegmented Neuts Not Reportable 04/12/20 18:11 Hyposegmented Neuts Not Reportable 04/12/20 18:11 Hypogranular Neuts Not Reportable 04/12/20 18:11 Smudge Cells Not Reportable 04/12/20 18:11 Toxic Granulation Not Reportable 04/12/20 18:11 Toxic Vacuolation Not Reportable 04/12/20 18:11 Dohle Bodies Not Reportable 04/12/20 18:11 Pelger-Huet Anomaly Not Reportable 04/12/20 18:11 Serenity Rods Not Reportable 04/12/20 18:11 Platelet Estimate Consistent w auto 04/12/20 18:11 Clumped Platelets Not Reportable 04/12/20 18:11 Plt Clumps, EDTA Not Reportable 04/12/20 18:11 Large Platelets Not Reportable 04/12/20 18:11 Giant Platelets Not Reportable 04/12/20 18:11 Platelet Satelliting Not Reportable 04/12/20 18:11 Plt Morphology Comment Not Reportable 04/12/20 18:11 RBC Morphology Not Reportable 04/12/20 18:11 Dimorphic RBCs Not Reportable 04/12/20 18:11 Polychromasia Not Reportable 04/12/20 18:11 Hypochromasia Not Reportable 04/12/20 18:11 Poikilocytosis Not Reportable 04/12/20 18:11 Anisocytosis 1+ 04/12/20 18:11 Microcytosis Not Reportable 04/12/20 18:11 Macrocytosis Not Reportable 04/12/20 18:11 Spherocytes Not Reportable 04/12/20 18:11 Pappenheimer Bodies Not Reportable 04/12/20 18:11 Sickle Cells Not Reportable 04/12/20 18:11 Target Cells Not Reportable 04/12/20 18:11 Tear Drop Cells Not Reportable 04/12/20 18:11 Ovalocytes Not Reportable 04/12/20 18:11 Helmet Cells Not Reportable 04/12/20 18:11 Brock-Gilberts Bodies Not Reportable 04/12/20 18:11 Marion Rings Not Reportable 04/12/20 18:11 Alma Cells Not Reportable 04/12/20 18:11 Bite Cells Not Reportable 04/12/20 18:11 Crenated Cell Not Reportable 04/12/20 18:11 Elliptocytes Not Reportable 04/12/20 18:11 Acanthocytes (Spur) Not Reportable 04/12/20 18:11 Rouleaux Not Reportable 04/12/20 18:11 Hemoglobin C Crystals Not Reportable 04/12/20 18:11 Schistocytes Not Reportable 04/12/20 18:11 Malaria parasites Not Reportable 04/12/20 18:11 Cong Bodies Not Reportable 04/12/20 18:11 Hem Pathologist Commnt No 04/12/20 18:11 Sodium 134 mmol/L (137-145) L 04/12/20 18:11 Potassium 4.8 mmol/L (3.6-5.0) 04/12/20 18:11 Chloride 92.7 mmol/L (98-107) L 04/12/20 18:11 Carbon Dioxide 24 mmol/L (22-30) 04/12/20 18:11 Anion Gap 22 mmol/L 04/12/20 18:11 BUN 8 mg/dL (9-20) L 04/12/20 18:11 Creatinine 1.1 mg/dL (0.8-1.3) 04/12/20 18:11 Estimated GFR > 60 ml/min 04/12/20 18:11 BUN/Creatinine Ratio 7 % 04/12/20 18:11 Glucose 455 mg/dL (75-100) H 04/12/20 18:11 POC Glucose 255 (70-105) H 04/14/20 16:09 Hemoglobin A1c 13.5 % (4-6) H 04/13/20 Unknown Calcium 9.2 mg/dL (8.4-10.2) 04/12/20 18:11 Troponin T < 0.010 ng/mL (0.00-0.029) 04/13/20 00:03 Triglycerides 230 mg/dL (2-149) H 04/13/20 Unknown Cholesterol 195 mg/dL (50-199) 04/13/20 Unknown LDL Cholesterol Direct 125 mg/dL (50-130) 04/13/20 Unknown HDL Cholesterol 44 mg/dL (40-59) 04/13/20 Unknown Cholesterol/HDL Ratio 4.43 % 04/13/20 Unknown - Diagnostic Impressions Diagnostic Impressions: Echocardiogram 04/13/20 08:13 Transthoracic Echocardiogram Indication: Chest Pain BP: 120/77 HR: 61 Conclusions *EF 60-65% *MILD -MOD. LVH *PROBABLY GRADEII DIASTOLIC DYSFUNCTION *MILD LAE *MILD DILITATION OF THE ASCENDING AORTA Findings Left Ventricle: The left ventricular chamber size is normal. Mild concentric left ventricular hypertrophy is observed. Global left ventricular wall motion and contractility are within normal limits. Global left ventricular systolic function is normal. The estimated ejection fraction is 60-65%. Left Atrium: The left atrium is normal in size with no visual thrombus identified. The left atrium is mildly dilated. Right Ventricle: The right ventricular cavity size is normal. The right ventricular global systolic function is normal. Right Atrium: The right atrium appears normal. The interatrial septum appears normal. Aortic Valve: The aortic valve structure is normal. There is no evidence of aortic regurgitation. There is no evidence of aortic stenosis. Mitral Valve: The mitral valve leaflets appear normal. There is trace of mitral regurgitation. There is no evidence of mitral stenosis. Tricuspid Valve: The tricuspid valve leaflets are normal. There is mild tricuspid regurgitation. The right ventricular systolic pressure is calculated at 26 mmHg. There is no tricuspid stenosis. Pulmonic Valve: The pulmonic valve appears normal. There is mild pulmonic regurgitation. There is no pulmonic stenosis. Pericardium: There is no pericardial effusion. Aorta: There is mild dilatation of the ascending aorta. There is no dilatation of the aortic arch. There is no dilatation of the descending thoracic aorta. There is mild dilatation of the aortic root. Venous: There is a greater than 50% respiratory change in the inferior vena cava dimension. Measurements Chambers 2D Name Value Normal Range IVSd (2D) 1.09 cm (0.6 - 1.1) LVPWd (2D) 1.08 cm (0.6 - 1.1) LVIDd (2D) 4.72 cm (3.7 - 5.6) LVIDs (2D) 3.44 cm (2 - 3.8) LV FS (2D) 27.08 % - EF Teichholz (2D) 52.75 % - Ao root diameter (2D) 3.69 cm (2 - 3.7) Volumes/Mass Name Value Normal Range LA ESV SP 4CH (A/L) 42.62 ml - LA ESV SP 2CH (A/L) 29.59 ml - LA ESV BP (A/L) 37.41 ml - LA ESV SP 4CH (MOD) 39.43 ml - LA ESV SP 2CH (MOD) 29.24 ml - LA ESV BP (MOD) 35.68 ml - LA ESV BP (MOD) index 17.49 ml/m2 - LV EDV SP 4CH (MOD) 73.22 ml - LV ESV SP 4CH (MOD) 28.88 ml - EF SP 4CH (MOD) 60.56 % - LV EDV SP 2CH (MOD) 31.95 ml - LV ESV SP 2CH (MOD) 8.76 ml - EF SP 2CH (MOD) 72.6 % - LV EDV BP 53.51 ml - LV ESV BP 18.06 ml - BP EF (MOD) 66.25 % - Diastolic/Systolic Function Name Value Normal Range MV E-wave Vmax 0.7 m/sec - MV deceleration time 228.67 msec - MV A-wave Vmax 0.83 m/sec - MV E:A ratio 0.84 ratio - Aortic Valve Name Value Normal Range AV Vmax 1.09 m/sec - AV VTI 22.13 cm - AV peak gradient 4.78 mmHg - AV mean gradient 2.59 mmHg - LVOT diameter 2.08 cm - LVOT Vmax 1.06 m/sec - LVOT VTI 19.39 cm - LVOT peak gradient 4.51 mmHg - LVOT mean gradient 1.94 mmHg - SV LVOT 65.99 ml - CHRISTEL (continuity Vmax) 3.3 cm2 - CHRISTEL (continuity VTI) 2.98 cm2 - Ascending Ao 2.89 cm - Tricuspid Valve Name Value Normal Range TR Vmax 2.41 m/sec - TR peak gradient 23.18 mmHg - RAP 3 mmHg - RVSP 26 mmHg - Pulmonic Valve/Qp:Qs Name Value Normal Range PV Vmax 0.66 m/sec - PV peak gradient 1.76 mmHg - [place] end-diastolic Vmax 0.87 m/sec - PV acceleration time 83.73 msec - Rodney/IV: Voiding Method Toilet IV Catheter Type [Right Hand] INT / Saline Lock Active Medications - Current Medications Current Medications: Generic Name Dose Route Start Last Admin Trade Name Freq PRN Reason Stop Dose Admin Aspirin 325 mg 04/13/20 10:00 04/14/20 10:17 Aspirin PO 325 mg QDAY DAVID Administration Atorvastatin Calcium 40 mg 04/13/20 22:00 04/13/20 21:35 Lipitor PO 40 mg QHS DAVID Administration Carvedilol 3.125 mg 04/13/20 10:00 04/14/20 10:17 Coreg PO 3.125 mg BID DAVID Administration Enoxaparin Sodium 40 mg 04/13/20 22:00 04/13/20 21:35 Enoxaparin SUB-Q 40 mg QDAY@2200 DAVID Administration Protocol Insulin Human Isoph/Insulin Regular 10 unit 04/13/20 08:00 04/14/20 16:36 Humulin 70/30 SUB-Q 10 unit BIDDIAB DAVID Administration Insulin Human Lispro 0 unit 04/13/20 11:30 04/14/20 17:37 Humalog SUB-Q 3 unit ACHS DAVID Administration Protocol Lisinopril 10 mg 04/13/20 10:00 04/14/20 10:17 Zestril PO 10 mg QDAY DAVID Administration Morphine Sulfate 2 mg 04/13/20 07:56 Morphine IV Q4H PRN Pain, Moderate (4-6) Nitroglycerin 0.4 mg 04/13/20 09:00 Nitrostat SL .Q5MIN PRN Chest Pain Pantoprazole Sodium 40 mg 04/15/20 07:30 Protonix PO QDAC DAVID
[2020-04-14] MEDS ORDERED: INSULIN NPH/REGULAR 70/30 INJ SUB-Q SCH (19:09)
[2020-04-14] MEDS: ENOXAPARIN 40 MG/0.4 ML INJ SUB-Q SCH (22:19)
[2020-04-15] MEDS ORDERED: PANTOPRAZOLE 40 MG TAB PO SCH (07:30)
[2020-04-15] MEDS ORDERED: REGADENOSON 0.4 MG/5 ML INJ IV ONE (07:41)
[2020-04-15] MEDS: INSULIN LISPRO 100 UNIT/ML VIAL 3 mL SUB-Q SCH (07:49)
--- NOTE | 2020-04-15 09:03 | Progress Note ---
Assessment and Plan - Patient Problems (1) Chest pain Current Visit: Yes Status: Acute Plan to address problem: Chest pain normal ECG Echocardiogram shows a normal left ventricular ejection fraction of 60-65%. Stress thallium test today for further cardiac evaluation. Results are pending. Subjective Date of service: 04/15/20 Interval history: No acute cardiac events overnight. For stress test today. Objective Vital Signs Temp Pulse Resp BP Pulse Ox 04/15/20 04:14 98.3 F 76 20 118/75 100 04/14/20 23:42 32.1 F L 80 20 104/63 97 04/14/20 22:18 79 158/96 04/14/20 22:00 75 04/14/20 20:13 98.3 F 79 20 107/70 97 04/14/20 15:53 71 18 118/72 98 04/14/20 09:11 98.2 F 75 18 105/69 98 - Physical Examination General: No Apparent Distress HEENT: Positive: PERRL Neck: Positive: neck supple Cardiac: Positive: Reg Rate and Rhythm Extremities: Absent: edema
[2020-04-15] MEDS: carvediloL 3.125 MG TAB PO SCH (11:33)
[2020-04-15] MEDS: ASPIRIN 325 MG TAB PO SCH (11:33)
[2020-04-15] MEDS: LISINOPRIL 10 MG TAB PO SCH (11:33)
--- NOTE | 2020-04-15 15:13 | Discharge Summary ---
Providers - Providers Date of Admission: 04/13/20 03:49 Date of discharge: 04/15/20 Attending physician: AKANKSHA WHYTE 04/13/20 03:35 Consult to Physician [CONS] Urgent Comment: Consulting Provider: ANY DIETRICH Physician Instructions: Reason For Exam: chest pain, abnormal ekg Primary care physician: [employer] Hospitalization Condition: Stable Pertinent studies: Echo EF 60 to 65%; Stress test; negative for ischemia Disposition: [place]- TO HOME OR SELFCARE Time spent for discharge: 35 min Core Measure Documentation - Palliative Care Palliative Care/ Comfort Measures: Not Applicable - Core Measures Any of the following diagnoses?: none Exam - Constitutional Vitals: Temp Pulse Resp BP Pulse Ox 98.6 F 69 18 120/80 97 04/15/20 11:39 04/15/20 11:39 04/15/20 11:39 04/15/20 11:39 04/15/20 11:39 General appearance: Present: no acute distress, well-nourished - EENT Eyes: Present: PERRL, EOM intact - Neck Neck: Present: supple, normal ROM - Respiratory Respiratory: bilateral: diminished, negative: rales, rhonchi, wheezing - Cardiovascular Rhythm: regular Heart Sounds: Present: S1 & S2 - Extremities Extremities: no ischemia, No edema - Abdominal General gastrointestinal: Present: soft, non-tender, non-distended, normal bowel sounds - Integumentary Integumentary: Present: clear, warm - Musculoskeletal Musculoskeletal: strength equal bilaterally - Psychiatric Psychiatric: appropriate mood/affect, cooperative - Neurologic Neurologic: moves all extremities Plan Activity: advance as tolerated Diet: diabetic Additional Instructions: Your stress test is negative[normal]. If you have worsening symptoms contact MD or go to emergency room Follow up with: PRIMARY MD BRAXTON [Primary Care Provider] - 7 Days XANDER TRIMBLE MD [Staff Physician] - 7 Days Prescriptions: carvediloL [Coreg] 3.125 mg PO BID #60 tablet AtorvaSTATin [Lipitor] 40 mg PO QHS #30 tablet Pantoprazole [Protonix TAB] 40 mg PO QDAC #20 tablet
[2020-04-15 16:10] VITALS: BP 114/68
--- NOTE | 2020-04-20 21:19 | Treadmill Report ---
THALLIUM STRESS TEST LEFT VENTRICLE: Left ventricular chamber size is within normal spread. Perfusion study demonstrates homogeneous uptake of the tracer in all segments, no defects identified. Gated analysis demonstrates normal left ventricular systolic function, ejection fraction 65%. CONCLUSION: Normal myocardial perfusion study. JOB# [id number] CA/NTS
== END 2020-04-15 18:28 | disposition home or self-care (01) ==
LOC: ED 17:10 → 4A 04-13 03:49
PROVIDERS: ADMIT Internal Medicine Geriatric Medicine; ATTEND Internal Medicine
DX: R07.89 Other chest pain (principal); R94.31 Abnormal electrocardiogram [ECG] [EKG]; I10 Essential (primary) hypertension; R74.8 Abnormal levels of other serum enzymes; E11.9 Type 2 diabetes mellitus without complications; E78.5 Hyperlipidemia, unspecified; R94.8 Abnormal results of function studies of other organs and systems; E78.00 Pure hypercholesterolemia, unspecified; Z87.891 Personal history of nicotine dependence; Z79.4 Long term (current) use of insulin; Z79.82 Long term (current) use of aspirin
CPT/HCPCS: 36415; 71045; 78452; 80048; 80061; 82962; 83036; 84484; 85025; 93005; 93017; 93306; 96372; 96374; 96376; 99285; A9270; A9502; C9113; G0378; J1650; J2785; 85007; J1815